=== PATIENT | female | born 1995 | race Caucasian/White ===

== ENCOUNTER 2021-09-02 16:35 | Emergency (ER) | payer SELFPAY ==
[~2021-09-02] VITALS: Ht 154.9 cm; Wt 68.9 kg
[2021-09-02 17:00] VITALS: BP 100/54
--- NOTE | 2021-09-02 17:06 | NUR ---
PT TO WAIT IN LOBBY.
--- NOTE | 2021-09-02 17:20 | NUR ---
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
[2021-09-02 17:38] LABS: BASOPHILS # (AUTO) 0.1 K/uL (0.00-0.22); BASOPHILS % (AUTO) 0.8 % (0.0-2.0); EOSINOPHILS # (AUTO) 0.2 K/uL (0-0.4); EOSINOPHILS % (AUTO) 2.4 % (0.0-4.0); HEMATOCRIT 34.4 % (36-48); HEMOGLOBIN 11.9 g/dL (12.0-16.0); LYMPHOCYTES # (AUTO) 2.3 K/uL (2.5-16.5); MEAN CORPUSCULAR HEMOGLOBIN 31 pg (27-31); MEAN CORPUSCULAR HGB CONC 35 g/dL (33-37); MEAN CORPUSCULAR VOLUME 89.9 fL (80-94); MONOCYTES # (AUTO) 0.4 K/uL (0.8-1.0); MONOCYTES % (AUTO) 5.6 % (1.7-9.3); NEUTROPHILS % (AUTO) 62.2 % (42.2-75.2); PLATELET COUNT (AUTO) 288 K/uL (140-450); RED BLOOD CELL COUNT(AUTO) 3.83 MIL/uL (4.20-5.40); RED CELL DISTRIBUTION WIDTH 13.1 % (11.6-13.7)
--- NOTE | 2021-09-02 18:50 | NUR ---
PT. AMBULATED TO ED FROM LOBBY TO BED9
[2021-09-02 18:53] LABS: APPEARANCE,URINE CLEAR (CLEAR); BILIRUBIN,URINE NEGATIVE (NEGATIVE); BLOOD, URINE 1+ (NEGATIVE); COLOR,URINE YELLOW (YELLOW); LEUKOCYTE ESTERASE ,URINE 1+ (NEGATIVE); NITRITE, URINE NEGATIVE (NEGATIVE); UGLUCOSE NEGATIVE (NEGATIVE)
[2021-09-02 19:11] LABS: RBC,URINE 0-5 /HPF (0-5); WBC,URINE 0-5 /HPF (0-5)
[2021-09-02 19:12] LABS: OTHER CASTS, URINE None Seen /LPF (None Seen)
[2021-09-02] MEDS ORDERED: NITR100C7 PO (19:19)
--- NOTE | 2021-09-02 19:19 | NUR ---
Pt report given to DEAN QUIGLEY. Transfer of care at this time.
--- NOTE | 2021-09-02 19:24 | NUR ---
pt is awake and alert, all needs met at this time. pt denies pain.
[2021-09-02 19:50] VITALS: BP 118/74
== END 2021-09-02 19:50 | disposition home or self-care (01) ==
LOC: MED 16:35
DX: O20.0 Threatened abortion (principal); O23.41 Unspecified infection of urinary tract in pregnancy, first trimester; Z3A.10 10 weeks gestation of pregnancy
CPT/HCPCS: 36415; 76801; 81001; 81025; 84702; 85025; 86900; 86901; 87086; 99284; Q0092